=== PATIENT | male | born 1965 | race Caucasian/White ===

== ENCOUNTER 2019-02-02 20:20 | Emergency (ER) | payer SELFPAY ==
[~2019-02-02] VITALS: Ht 167.6 cm; Wt 90.3 kg
[2019-02-02 20:30] VITALS: Ht 167.6 cm; Wt 90.3 kg
[2019-02-03 00:36] VITALS: BP 117/71
== END 2019-02-03 00:41 | disposition home or self-care (01) ==
LOC: ED 20:20
DX: S61.452A Open bite of left hand, initial encounter (principal); W54.0XXA Bitten by dog, initial encounter; Y93.89 Activity, other specified; Y92.89 Other specified places as the place of occurrence of the external cause; Y99.8 Other external cause status
CPT/HCPCS: 90715; J1885; J2270; J2405

== ENCOUNTER 2020-11-05 14:52 | Emergency (ER) | payer SELFPAY ==
[~2020-11-05] VITALS: Ht 170.2 cm; Wt 90.7 kg
[2020-11-05 15:04] VITALS: BP 170/91; Ht 170.2 cm; Wt 90.7 kg
== END 2020-11-05 19:29 | disposition home or self-care (01) ==
LOC: ED 14:52
DX: S01.01XD Laceration without foreign body of scalp, subsequent encounter (principal); W54.0XXD Bitten by dog, subsequent encounter
CPT/HCPCS: J0696

== ENCOUNTER 2020-11-08 12:31 | Emergency (ER) | payer SELFPAY ==
[~2020-11-08] VITALS: Ht 170.2 cm; Wt 91.2 kg
[2020-11-08 13:00] VITALS: BP 132/81; Ht 170.2 cm; Wt 91.2 kg
== END 2020-11-08 13:11 | disposition home or self-care (01) ==
LOC: ED 12:31
DX: S01.80XD Unspecified open wound of other part of head, subsequent encounter (principal); X58.XXXD Exposure to other specified factors, subsequent encounter